=== PATIENT | male | born 1980 | race African-American/Black ===

== ENCOUNTER 2022-01-17 22:05 | Emergency (ER) | payer SELFPAY ==
[~2022-01-17] VITALS: Ht 177.8 cm; Wt 72.7 kg
[2022-01-17 22:34] VITALS: TEMP 98.2
[2022-01-18 01:12] LABS: COLLECTION METHOD CLEAN CATCH
[2022-01-18 01:15] LABS: HEMOGLOBIN 12.7 g/dl (13.5-18.0); MEAN CELL VOLUME 94 fl (80.0-100.0); MEAN CORPUSCULAR HEMOGLOBIN 31 pg (27-31); MEAN CORPUSCULAR HGB CONC 33 g/dl (33.0-37.0); MEAN PLATELET VOLUME 9.1 fl (7.4-10.4); PLATELET COUNT 334 K/mm3 (130-400); RED BLOOD COUNT 4.14 M/mm3 (4.20-5.60); REDCELL DISTRIBUTION WIDTH-CV 12.7 % (11.5-14.5)
[2022-01-18 01:22] LABS: MUCOUS Present (NOT PRESENT); PH 5 (5-8); SQUAMOUS EPITHELIAL None Seen /hpf (0-10); URINE APPEARANCE Clear (CLEAR/HAZY); URINE BACTERIA None Seen /hpf (NONE SEEN); URINE BILIRUBIN Negative (NEGATIVE); URINE BLOOD Negative (NEGATIVE); URINE COLOR Yellow (YELLOW); URINE GLUCOSE Negative (NEGATIVE); URINE KETONE Negative (NEGATIVE); URINE LEUKOCYTE ESTERASE Negative (NEGATIVE); URINE NITRATE Negative (NEGATIVE); URINE PROTEIN(semi-quant) 1+ (NEGATIVE); URINE RBC 0-2 /hpf (0-2)
[2022-01-18 01:27] LABS: ALANINE AMINOTRANSFERASE 23 U/L (0-55); ALBUMIN 3.5 gm/dL (3.5-5.0); ALKALINE PHOSPHATASE 95 U/L (40-150); ANION GAP 9 mmol/L (7-16); AST,SGOT 20 U/L (5-34); BILIRUBIN,TOTAL 0.3 mg/dL (0.2-1.2); BLOOD UREA NITROGEN 10 mg/dL (9-21); CALCIUM 9.1 mg/dL (8.4-10.2); CARBON DIOXIDE 28 mmol/L (22-29); CHLORIDE 103 mmol/L (98-107); CREATININE, serum 0.79 mg/dL (0.72-1.25); GLUCOSE 80 mg/dL (70-99); POTASSIUM 4.2 mmol/L (3.5-4.5); SODIUM 140 mmol/L (136-145); TOTAL PROTEIN 8.1 gm/dL (6.2-8.1)
[2022-01-18 01:28] LABS: ACETAMINOPHEN < 1.0 ug/mL (10-30); ALCOHOL(ethanol),MEDICAL < 10 mg/dL (0-10); SALICYLATE < 5.0 mg/dL (15.0-30.0)
[2022-01-18 01:30] LABS: TRICYCLIC ANTIDEPRESS URINE NEGATIVE
[2022-01-18 01:49] LABS: TSH w REFLEX 2.897 uIU/mL (0.350-4.940)
[2022-01-18 01:51] LABS: EOSINOPHIL 3 % (0-4); HYPOCHROMIA 2+; LYMPHOCYTE 63 % (20.0-51.0); NEUTROPHILS 29 % (42.0-75.2); PLATELET ESTIMATE NORMAL (NORMAL)
[2022-01-18 09:30] VITALS: BP 148/96; PULSE 105
== END 2022-01-18 09:30 ==
LOC: COL.ER 22:05
PROVIDERS: Emergency Medicine
DX: R46.89 Other symptoms and signs involving appearance and behavior (principal); Z20.822 Contact with and (suspected) exposure to COVID-19; Z28.310 Unvaccinated for COVID-19
CPT/HCPCS: J1630; J2060

== ENCOUNTER 2022-03-18 17:42 | Emergency (ER) | payer MEDICAID | END 2022-03-18 18:09 | disposition left against medical advice (07) | LOC: COL.ER 17:42 | DX: Z04.89 Encounter for examination and observation for other specified reasons (principal) ==

== ENCOUNTER 2022-03-18 18:26 | Emergency (ER) | payer MEDICAID ==
[~2022-03-18] VITALS: Ht 182.9 cm; Wt 90.9 kg
[2022-03-18 19:23] LABS: COLLECTION METHOD CLEAN CATCH
[2022-03-18 19:29] VITALS: TEMP 98
[2022-03-18 19:45] LABS: BASO # 0.1 K/mm3 (0.0-0.2); EOS # 0.1 K/mm3 (0.0-0.7); EOS % 1.2 % (0.0-4.0); GRAN # 2.6 K/mm3 (1.4-6.5); GRAN % 43.9 % (42.2-75.2); HEMATOCRIT 39.3 % (42.0-52.0); HEMOGLOBIN 12.7 g/dl (13.5-18.0); LYMPH # 2.7 K/mm3 (1.2-3.4); LYMPH % 44.5 % (20.0-51.0); MEAN CELL VOLUME 95 fl (80.0-100.0); MEAN CORPUSCULAR HEMOGLOBIN 31 pg (27-31); MEAN CORPUSCULAR HGB CONC 32 g/dl (33.0-37.0); MEAN PLATELET VOLUME 10.1 fl (7.4-10.4); MONO # 0.6 K/mm3 (0.1-0.6); MONO % 9.2 % (1.7-9.3); PLATELET COUNT 292 K/mm3 (130-400); RED BLOOD COUNT 4.12 M/mm3 (4.20-5.60); REDCELL DISTRIBUTION WIDTH-CV 13.5 % (11.5-14.5)
[2022-03-18 19:47] LABS: ALANINE AMINOTRANSFERASE 37 U/L (0-55); ALBUMIN 4.1 gm/dL (3.5-5.0); ALKALINE PHOSPHATASE 57 U/L (40-150); ANION GAP 10 mmol/L (7-16); AST,SGOT 47 U/L (5-34); BILIRUBIN,TOTAL 0.8 mg/dL (0.2-1.2); BLOOD UREA NITROGEN 15 mg/dL (9-21); CALCIUM 9.4 mg/dL (8.4-10.2); CARBON DIOXIDE 26 mmol/L (22-29); CHLORIDE 105 mmol/L (98-107); CREATININE, serum 1.02 mg/dL (0.72-1.25); GLUCOSE 120 mg/dL (70-99); POTASSIUM 3.9 mmol/L (3.5-4.5); SODIUM 141 mmol/L (136-145); TOTAL PROTEIN 8.2 gm/dL (6.2-8.1)
[2022-03-18 19:50] LABS: MUCOUS Present (NOT PRESENT); SQUAMOUS EPITHELIAL None Seen /hpf (0-10); URINE BACTERIA None Seen /hpf (NONE SEEN); URINE RBC 0-2 /hpf (0-2)
[2022-03-18 19:51] LABS: ACETAMINOPHEN < 1.0 ug/mL (10-30); ALCOHOL(ethanol),MEDICAL < 10 mg/dL (0-10); SALICYLATE < 5.0 mg/dL (15.0-30.0)
[2022-03-18 19:58] LABS: PH 5.5 (5.0-8.5); URINE APPEARANCE Cloudy (CLEAR/HAZY); URINE COLOR Yellow (YELLOW); URINE GLUCOSE Negative (NEGATIVE); URINE KETONE TRACE (NEGATIVE); URINE PROTEIN(semi-quant) 1+ (NEGATIVE)
[2022-03-18 19:59] LABS: URINE BLOOD TRACE-INTACT (NEGATIVE); URINE NITRATE Negative (NEGATIVE)
[2022-03-18 20:01] LABS: TRICYCLIC ANTIDEPRESS URINE NEGATIVE
[2022-03-19 18:18] VITALS: BP 122/60; PULSE 85
== END 2022-03-19 18:32 ==
LOC: COL.ER 18:26
PROVIDERS: Family Medicine
DX: F19.10 Other psychoactive substance abuse, uncomplicated (principal); M25.522 Pain in left elbow; F17.210 Nicotine dependence, cigarettes, uncomplicated; Z20.822 Contact with and (suspected) exposure to COVID-19; Z28.310 Unvaccinated for COVID-19
CPT/HCPCS: J1200; J1630; J2060

== ENCOUNTER 2022-04-02 04:09 | Emergency (ER) | payer MEDICAID ==
[~2022-04-02] VITALS: Ht 177.8 cm; Wt 68.2 kg
[2022-04-02 04:11] VITALS: TEMP 99.1
[2022-04-02] MEDS ORDERED: ZYPREXA 5MG5 MG PO (05:26)
[2022-04-02] MEDS ORDERED: WART REMOVER TOP (05:26)
[2022-04-02] MEDS ORDERED: LEXAPRO 10MG10 MG PO (05:26)
[2022-04-02 05:43] VITALS: BP 130/78; PULSE 76
== END 2022-04-02 05:43 | disposition home or self-care (01) ==
LOC: COL.ER 04:09
DX: M25.562 Pain in left knee (principal); Z76.0 Encounter for issue of repeat prescription; B07.0 Plantar wart

== ENCOUNTER 2022-04-04 14:58 | Emergency (ER) | payer MEDICAID ==
[~2022-04-04] VITALS: Ht 180.3 cm; Wt 70.5 kg
[~2022-04-04 14:58] MED LIST: LEXAPRO 10MG10 MG PO; WART REMOVER TOP; ZYPREXA 5MG5 MG PO
[2022-04-04 15:33] VITALS: TEMP 98.5
[2022-04-04 17:21] VITALS: BP 131/64; PULSE 103
[2022-04-05] MEDS ORDERED: MOTRIN 800800 MG/TAB PO (03:56)
== END 2022-04-04 17:21 | disposition home or self-care (01) ==
LOC: COL.ER 14:58
DX: M79.89 Other specified soft tissue disorders (principal); B07.0 Plantar wart; F17.290 Nicotine dependence, other tobacco product, uncomplicated; F17.210 Nicotine dependence, cigarettes, uncomplicated

== ENCOUNTER 2022-04-05 03:34 | Emergency (ER) | payer MEDICAID ==
[~2022-04-05] VITALS: Ht 177.8 cm; Wt 68.2 kg
[2022-04-05 03:38] VITALS: BP 124/78; PULSE 84; TEMP 98.4
[2022-04-05] MEDS ORDERED: MOTRIN 800800 MG/TAB PO (03:56)
[2022-04-06] MEDS ORDERED: CEPHALEXIN500 M1 PO (00:31)
[2022-04-06] MEDS ORDERED: PREDNISONE20 MG PO (00:31)
== END 2022-04-05 03:55 | disposition home or self-care (01) ==
LOC: COL.ER 03:34
DX: M25.562 Pain in left knee (principal); M79.642 Pain in left hand; M79.641 Pain in right hand

== ENCOUNTER 2022-04-05 22:23 | Emergency (ER) | payer MEDICAID ==
[~2022-04-05] VITALS: Ht 177.8 cm; Wt 68.2 kg
[~2022-04-05 22:23] MED LIST changes: +MOTRIN 800800 MG/TAB PO
[2022-04-05 22:24] VITALS: TEMP 100.4
[2022-04-05 23:02] LABS: BASO % 0.4 % (0.0-2.0); EOS % 0.5 % (0.0-4.0); GRAN # 4.7 K/mm3 (1.4-6.5); GRAN % 63.3 % (42.2-75.2); HEMATOCRIT 37.7 % (42.0-52.0); HEMOGLOBIN 12.9 g/dl (13.5-18.0); LYMPH # 2.1 K/mm3 (1.2-3.4); LYMPH % 27.8 % (20.0-51.0); MEAN CELL VOLUME 90 fl (80.0-100.0); MEAN CORPUSCULAR HEMOGLOBIN 31 pg (27-31); MEAN CORPUSCULAR HGB CONC 34 g/dl (33.0-37.0); MEAN PLATELET VOLUME 9.2 fl (7.4-10.4); MONO # 0.6 K/mm3 (0.1-0.6); MONO % 7.7 % (1.7-9.3); PLATELET COUNT 380 K/mm3 (130-400); RED BLOOD COUNT 4.17 M/mm3 (4.20-5.60); REDCELL DISTRIBUTION WIDTH-CV 13.7 % (11.5-14.5)
[2022-04-05 23:13] LABS: COLLECTION METHOD CLEAN CATCH
[2022-04-05 23:22] LABS: ALBUMIN 3.5 gm/dL (3.5-5.0); BILIRUBIN,TOTAL 0.3 mg/dL (0.2-1.2); C-REACTIVE PROTEIN 4.75 mg/dL (0.00-0.50); CALCIUM 9.3 mg/dL (8.4-10.2); CREATININE, serum 0.79 mg/dL (0.72-1.25); POTASSIUM 3.7 mmol/L (3.5-4.5); TOTAL PROTEIN 8.1 gm/dL (6.2-8.1)
[2022-04-05 23:24] LABS: MUCOUS Present (NOT PRESENT); SQUAMOUS EPITHELIAL 0-2 /hpf (0-10); URINE BACTERIA None Seen /hpf (NONE SEEN); URINE RBC 0-2 /hpf (0-2)
[2022-04-05 23:25] LABS: URINE APPEARANCE Clear (CLEAR/HAZY); URINE BLOOD Negative (NEGATIVE); URINE COLOR Yellow (YELLOW); URINE GLUCOSE Negative (NEGATIVE); URINE KETONE TRACE (NEGATIVE); URINE NITRATE Negative (NEGATIVE); URINE PROTEIN(semi-quant) 1+ (NEGATIVE)
[2022-04-06] MEDS ORDERED: PREDNISONE20 MG PO (00:31)
[2022-04-06] MEDS ORDERED: CEPHALEXIN500 M1 PO (00:31)
[2022-04-06 01:16] VITALS: BP 120/81; PULSE 90
== END 2022-04-06 01:20 | disposition home or self-care (01) ==
LOC: COL.ER 22:23
PROVIDERS: Personal Emergency Response Attendant
DX: M13.821 Other specified arthritis, right elbow (principal); L03.90 Cellulitis, unspecified; Z20.822 Contact with and (suspected) exposure to COVID-19
CPT/HCPCS: J7512

== ENCOUNTER 2022-04-17 03:47 | Emergency (ER) | payer MEDICAID ==
[~2022-04-17] VITALS: Ht 177.8 cm; Wt 72.7 kg
[~2022-04-17 03:47] MED LIST changes: +CEPHALEXIN500 M1 PO; +PREDNISONE20 MG PO
[2022-04-17] MEDS ORDERED: PERCOCET 325 MG1 TA2 PO ×2 (04:55)
[2022-04-17 05:28] VITALS: BP 133/75; PULSE 95; TEMP 98
== END 2022-04-17 05:28 | disposition home or self-care (01) ==
LOC: COL.ER 03:47
DX: F19.10 Other psychoactive substance abuse, uncomplicated (principal); F17.210 Nicotine dependence, cigarettes, uncomplicated; Z28.310 Unvaccinated for COVID-19

== ENCOUNTER 2022-04-20 16:01 | Emergency (ER) | payer MEDICAID ==
[~2022-04-20] VITALS: Ht 172 cm; Wt 72.7 kg
[~2022-04-20 16:01] MED LIST changes: +PERCOCET 325 MG1 TA2 PO
[2022-04-20 16:36] VITALS: TEMP 98.2
[2022-04-20 17:37] LABS: COLLECTION METHOD CLEAN CATCH
[2022-04-20 17:39] LABS: BASO # 0.1 K/mm3 (0.0-0.2); BASO % 0.8 % (0.0-2.0); EOS % 0.5 % (0.0-4.0); GRAN # 2.8 K/mm3 (1.4-6.5); GRAN % 43.8 % (42.2-75.2); HEMATOCRIT 40.1 % (42.0-52.0); HEMOGLOBIN 13.1 g/dl (13.5-18.0); LYMPH # 2.9 K/mm3 (1.2-3.4); MEAN CELL VOLUME 92 fl (80.0-100.0); MEAN CORPUSCULAR HEMOGLOBIN 30 pg (27-31); MEAN CORPUSCULAR HGB CONC 33 g/dl (33.0-37.0); MEAN PLATELET VOLUME 8.6 fl (7.4-10.4); MONO # 0.6 K/mm3 (0.1-0.6); MONO % 8.7 % (1.7-9.3); PLATELET COUNT 455 K/mm3 (130-400); RED BLOOD COUNT 4.34 M/mm3 (4.20-5.60); REDCELL DISTRIBUTION WIDTH-CV 13.8 % (11.5-14.5)
[2022-04-20 17:45] LABS: PH 5.5 (5.0-8.5); URINE APPEARANCE Hazy (CLEAR/HAZY); URINE BLOOD Negative (NEGATIVE); URINE COLOR Yellow (YELLOW); URINE GLUCOSE Negative (NEGATIVE); URINE KETONE Negative (NEGATIVE); URINE NITRATE Negative (NEGATIVE); URINE PROTEIN(semi-quant) 1+ (NEGATIVE); URINE UROBILINOGEN 0.2 E.U/dL (0.2-1.0)
[2022-04-20 17:47] LABS: MUCOUS Present (NOT PRESENT); SQUAMOUS EPITHELIAL None Seen /hpf (0-10); URINE BACTERIA None Seen /hpf (NONE SEEN)
[2022-04-20 17:55] LABS: TRICYCLIC ANTIDEPRESS URINE NEGATIVE
[2022-04-20 17:59] LABS: ACETAMINOPHEN < 1.0 ug/mL (10-30); ALANINE AMINOTRANSFERASE 29 U/L (0-55); ALBUMIN 3.8 gm/dL (3.5-5.0); ALCOHOL(ethanol),MEDICAL < 10 mg/dL (0-10); ALKALINE PHOSPHATASE 64 U/L (40-150); ANION GAP 9 mmol/L (7-16); AST,SGOT 27 U/L (5-34); BILIRUBIN,TOTAL 0.4 mg/dL (0.2-1.2); BLOOD UREA NITROGEN 21 mg/dL (9-21); CALCIUM 9.6 mg/dL (8.4-10.2); CARBON DIOXIDE 28 mmol/L (22-29); CHLORIDE 101 mmol/L (98-107); CREATININE, serum 0.98 mg/dL (0.72-1.25); GLUCOSE 118 mg/dL (70-99); POTASSIUM 4.5 mmol/L (3.5-4.5); SALICYLATE < 5.0 mg/dL (15.0-30.0); SODIUM 138 mmol/L (136-145); TOTAL PROTEIN 8.6 gm/dL (6.2-8.1)
[2022-04-21 01:48] VITALS: BP 145/78; PULSE 62
== END 2022-04-21 02:30 | disposition home or self-care (01) ==
LOC: COL.ER 16:01
PROVIDERS: Physician Assistant
DX: R45.851 Suicidal ideations (principal); Z20.822 Contact with and (suspected) exposure to COVID-19